=== PATIENT | female | born 1990 | race Hispanic/Latino ===

== ENCOUNTER 2022-08-31 08:54 | Emergency (ER) | payer BC ==
[2022-08-31 09:31] LABS: Absolute Lymphocytes (CBC) 2.4 K/uL (0.7-4.9); Hematocrit 40.7 % (36.0-45.0); Lymphocytes % 26.6 % (15.3-44.8); MCV 89.4 fL (80-100); MPV 7.4 fL (7.6-11.3); RBC Red Blood Cell Count 4.55 M/uL (3.86-4.86)
[2022-08-31 09:32] LABS: Specific Gravity < 1.005 (1.005-1.030)
[2022-08-31] MEDS ORDERED: FAMOTIDINE 20 MG/2 ML VIAL IV ONE (09:33)
[2022-08-31] MEDS ORDERED: PROMETHAZINE INJ 25 MG/ML AMP ONE (09:33)
[2022-08-31] MEDS ORDERED: NA CHLORIDE 0.9% 1,000 ML ONE (09:33)
[2022-08-31 09:38] LABS: Specific Gravity 1.005 (1.005-1.030); Urine Bacteria None Seen /HPF (<20); Urine Bilirubin NEGATIVE (Negative); Urine Blood Negative (Negative); Urine Clarity Turbid (Clear); Urine Color Colorless (Yellow); Urine Glucose NEGATIVE (Negative); Urine Protein NEGATIVE (Negative); Urine RBC None Seen /HPF (None Seen); Urine Urobilinogen Normal (Normal)
[2022-08-31 09:49] LABS: Albumin 3.6 g/dL (3.4-5.0); Bilirubin Total 0.4 mg/dL (0.2-1.0); Potassium 3.5 mEq/L (3.5-5.1); Protein, Total 7.2 g/dL (6.4-8.2)
--- NOTE | 2022-08-31 10:52 | RAD REPORT ---
EXAM DESCRIPTION: CT - Stone Protocol - 08/31/2022 10:32 am CLINICAL HISTORY: Abdominal pain. Right flank pain COMPARISON: None. TECHNIQUE: Computed axial tomography of the abdomen pelvis was obtained without oral or IV contrast. Lack of IV and oral contrast limits evaluation of solid organs, appendix, bowel, and vessels. Keane l reformatted images were obtained and reviewed. All CT scans are performed using dose optimization technique as appropriate and may include automated exposure control or mA/KV adjustment according to patient size. FINDINGS: A tiny right renal calculus. No hydronephrosis. Left renal calculus is not seen. No ureteral calculus. Bladder calculus is not present. The liver, spleen, pancreas and adrenals appear grossly normal There is no evidence of diverticulitis. An abnormal appendix is not visualized No adnexal mass Small umbilical hernia Spondylolysis L5. Slight anterior subluxation of L5 on S1 IMPRESSION: Tiny nonobstructing right renal calculus
--- NOTE | 2022-08-31 10:58 | ER ---
Nurse's Notes [facility] Name: Francesco Rosales Age: 32 yrs Sex: Female : 1990 Arrival Date: 08/31/2022 Time: 08:54 Bed 14 Private MD: Diagnosis: Other spondylosis, lumbosacral region;Unspecified renal colic Presentation: 08/31 08:59 Chief complaint: Patient states: pain on right side of torso X 2days , denies injury , iw + nausea, no v/d. Coronavirus screen: At this time, the client does not indicate any symptoms associated with coronavirus-19. Ebola Screen: Patient negative for fever greater than or equal to 101.5 degrees Fahrenheit, and additional compatible Ebola Virus Disease symptoms Patient denies exposure to infectious person. Patient denies travel to an Ebola-affected area in the 21 days before illness onset. No symptoms or risks identified at this time. Initial Sepsis Screen: Does the patient meet any 2 criteria? No. Patient's initial sepsis screen is negative. Does the patient have a suspected source of infection? No. Patient's initial sepsis screen is negative. Risk Assessment: Do you want to hurt yourself or someone else? Patient reports no desire to harm self or others. Onset of symptoms was August 29, 2022. 08:59 Method Of Arrival: Ambulatory iw 08:59 Acuity: DAVY 3 iw Triage Assessment: 09:20 General: Appears in no apparent distress. Behavior is calm, cooperative, appropriate bp for age. 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 Screenin:47 [facility] ED Fall Risk Assessment (Adult) History of falling in the last 3 months, bp including since admission No falls in past 3 months (0 pts). Abuse screen: Denies threats or abuse. Denies injuries from another. Nutritional screening: No deficits noted. Tuberculosis screening: No symptoms or risk factors identified. Assessment: 09:20 General: SEE TRIAGE NOTE. Pain: Complains of pain in right lower quadrant. GI: Bowel bp sounds present X 4 quads. Abd is soft. 10:46 Reassessment: PT RETURNED FROM CT. bp 11:37 Reassessment: DC HOME. bp Vital Signs: 08:59 BP 125 / 72; Pulse 70; Resp 16; Pulse Ox 99% ; iw 10:44 BP 111 / 65; Pulse 77; Resp 16; Pulse Ox 97% ; bp 11:37 BP 116 / 5; Pulse 53; Resp 16; Pulse Ox 99% ; bp ED Course: 08:55 Patient arrived in ED. ts1 08:57 Samantha Vail FNP-C is PHCP. snw 08:57 Sagar Diaz MD is Attending Physician. snw 09:00 Triage completed. iw 09:02 Arm band placed on. iw 09:10 Sanjay Wills, RN is Primary Nurse. bp 09:22 Inserted saline lock: 20 gauge in right forearm, using aseptic technique. Blood bp collected. 10:34 CT Stone Protocol In Process Unspecified. EDMS 10:47 Patient has correct armband on for positive identification. Bed in low position. Call bp light in reach. Side rails up X2. 11:38 No provider procedures requiring assistance completed. IV discontinued, intact, bp bleeding controlled, No redness/swelling at site. Pressure dressing applied. Administered Medications: 09:22 Drug: NS 0.9% IV 1000 ml Route: IV; Rate: 1 bolus; Site: right forearm; bp 11:19 Follow up: IV Status: Completed infusion; IV Intake: 1000ml bp 09:22 Drug: Famotidine IVP 20 mg Route: IVP; Site: right forearm; bp 11:20 Follow up: Response: No adverse reaction bp 09:22 Drug: Promethazine IVP 25 mg Route: IVP; Site: right forearm; bp 11:19 Follow up: Response: No adverse reaction bp 09:22 Drug: NS 0.9% IV 250 ml Route: IV; Rate: bolus; Site: right forearm; bp 11:20 Follow up: IV Status: Completed infusion; IV Intake: 250ml bp 11:19 Drug: Diazepam IVP 5 mg Route: IVP; Site: right forearm; bp 11:20 Follow up: Response: No adverse reaction bp Intake: 11:19 IV: 1000ml; Total: 1000ml. bp 11:20 IV: 250ml; Total: 1250ml. bp Outcome: 10:57 Discharge ordered by . snw 11:38 Discharged to home ambulatory, with family. bp 11:38 Condition: stable 11:38 Discharge instructions given to patient, Instructed on discharge instructions, follow up and referral plans. medication usage, Demonstrated understanding of instructions, follow-up care, medications, Prescriptions given X 2. 11:39 Patient left the ED. bp Signatures: Dispatcher [employer] EDMS Samantha Vail, DUCT LAYER-C DUCT LAYER-Csnw Tsering Cordova, RN RN iw Sanjay Wills RN RN bp Jazlyn Arias, PAS PAS ts1
--- NOTE | 2022-08-31 10:58 | EDPHYS ---
Physician Documentation [facility] Name: Francesco Rosales Age: 32 yrs Sex: Female : 1990 Arrival Date: 08/31/2022 Time: 08:54 Bed 14 Private MD: ED Physician Sagar Diaz HPI: 08/31 09:10 This 32 yrs old Female presents to ER via Ambulatory with complaints of snw Abdominal Pain. 09:10 The patient presents with abdominal pain right lower quadrant. Onset: The snw symptoms/episode began/occurred acutely, 2 day(s) ago, and became persistent. The symptoms radiate to right back. Associated signs and symptoms: Pertinent positives: nausea. The symptoms are described as achy. Severity of pain: At its worst the pain was moderate. The patient has not experienced similar symptoms in the past. The patient has not recently seen a physician. LMP 1 wk ago. 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 ROS: 09:09 Constitutional: Negative for fever, chills, and weight loss, Eyes: Negative for injury, snw pain, redness, and discharge, ENT: Negative for injury, pain, and discharge, Neck: Negative for injury, pain, and swelling, Cardiovascular: Negative for chest pain, palpitations, and edema, Respiratory: Negative for shortness of breath, cough, wheezing, and pleuritic chest pain, Back: Negative for injury and pain, : Negative for injury, bleeding, discharge, and swelling, MS/Extremity: Negative for injury and deformity, Skin: Negative for injury, rash, and discoloration, Neuro: Negative for headache, weakness, numbness, tingling, and seizure, Psych: Negative for depression, anxiety, suicide ideation, homicidal ideation, and hallucinations. 09:09 Abdomen/GI: Positive for abdominal pain, nausea, of the right lower quadrant. Exam: 09:07 Constitutional: This is a well developed, well nourished patient who is awake, alert, snw and in no acute distress. Head/Face: Normocephalic, atraumatic. Eyes: Pupils equal round and reactive to light, extra-ocular motions intact. Lids and lashes normal. Conjunctiva and sclera are non-icteric and not injected. Cornea within normal limits. Periorbital areas with no swelling, redness, or edema. ENT: Nares patent. No nasal discharge, no septal abnormalities noted. Tympanic membranes are normal and external auditory canals are clear. Oropharynx with no redness, swelling, or masses, exudates, or evidence of obstruction, uvula midline. Mucous membranes moist. Neck: Trachea midline, no thyromegaly or masses palpated, and no cervical lymphadenopathy. Supple, full range of motion without nuchal rigidity, or vertebral point tenderness. No Meningismus. Chest/axilla: Normal chest wall appearance and motion. Nontender with no deformity. No lesions are appreciated. Cardiovascular: Regular rate and rhythm with a normal S1 and S2. No gallops, murmurs, or rubs. Normal PMI, no JVD. No pulse deficits. Respiratory: Lungs have equal breath sounds bilaterally, clear to auscultation and percussion. No rales, rhonchi or wheezes noted. No increased work of breathing, no retractions or nasal flaring. Back: No spinal tenderness. No costovertebral tenderness. Full range of motion. Skin: Warm, dry with normal turgor. Normal color with no rashes, no lesions, and no evidence of cellulitis. MS/ Extremity: Pulses equal, no cyanosis. Neurovascular intact. Full, normal range of motion. Neuro: Awake and alert, GCS 15, oriented to person, place, time, and situation. Cranial nerves II-XII grossly intact. Motor strength 5/5 in all extremities. Sensory grossly intact. Cerebellar exam normal. Normal gait. Psych: Awake, alert, with orientation to person, place and time. Behavior, mood, and affect are within normal limits. 09:07 Abdomen/GI: Inspection: abdomen appears normal, Bowel sounds: hyperactive, in all quadrants, Palpation: mild abdominal tenderness, in the right lower quadrant. Vital Signs: 08:59 BP 125 / 72; Pulse 70; Resp 16; Pulse Ox 99% ; iw 10:44 BP 111 / 65; Pulse 77; Resp 16; Pulse Ox 97% ; bp 11:37 BP 116 / 5; Pulse 53; Resp 16; Pulse Ox 99% ; bp MDM: 09:07 Patient medically screened. snw 10:58 Differential diagnosis: appendicitis, Endometriosis, non-specific abd pain, ovarian snw cyst/back pain. Data reviewed: vital signs, nurses notes. I considered the following discharge prescriptions or medication management in the emergency department Medications were administered in the Emergency Department. See MAR. Counseling: I had a detailed discussion with the patient and/or guardian regarding: the historical points, exam findings, and any diagnostic results supporting the discharge/admit diagnosis, lab results, radiology results, the need for outpatient follow up, for definitive care, to return to the emergency department if symptoms worsen or persist or if there are any questions or concerns that arise at home. Response to treatment: the patient's symptoms have markedly improved after treatment. Special discussion: Based on the history and exam findings, there is no indication for further emergent testing or inpatient evaluation. I discussed with the patient/guardian the need to see the primary care provider for further evaluation of the symptoms. 08/31 08:57 Order name: Urine W/Microscopic (UAM); Complete Time: 09:46 snw 08/31 08:57 Order name: PREGU; Complete Time: 09:46 snw 08/31 09:09 Order name: CBC with Diff; Complete Time: 09:46 snw 08/31 09:09 Order name: CMP; Complete Time: 10:03 snw 08/31 09:09 Order name: Lipase; Complete Time: 10:03 snw 08/31 09:37 Order name: Test, Serum; Complete Time: 10:35 eb 08/31 09:47 Order name: CT Stone Protocol; Complete Time: 10:55 snw 08/31 09:09 Order name: Labs collected and sent; Complete Time: 09:32 snw Administered Medications: 09:22 Drug: NS 0.9% IV 1000 ml Route: IV; Rate: 1 bolus; Site: right forearm; bp 11:19 Follow up: IV Status: Completed infusion; IV Intake: 1000ml bp 09:22 Drug: Famotidine IVP 20 mg Route: IVP; Site: right forearm; bp 11:20 Follow up: Response: No adverse reaction bp 09:22 Drug: Promethazine IVP 25 mg Route: IVP; Site: right forearm; bp 11:19 Follow up: Response: No adverse reaction bp 09:22 Drug: NS 0.9% IV 250 ml Route: IV; Rate: bolus; Site: right forearm; bp 11:20 Follow up: IV Status: Completed infusion; IV Intake: 250ml bp 11:19 Drug: Diazepam IVP 5 mg Route: IVP; Site: right forearm; bp 11:20 Follow up: Response: No adverse reaction bp Disposition: 12:52 Co-signature as Attending Physician, Sagar Diaz MD I reviewed the patient's care rn provided by the Advanced Practice Provider and agree with the diagnosis and treatment plan. Disposition Summary: 08/31/22 10:57 Discharge Ordered Location: Home snw Condition: Stable snw Diagnosis - Other spondylosis, lumbosacral region snw - Unspecified renal colic snw Followup: snw - With: Emergency Department - When: As needed - Reason: Worsening of condition Followup: snw - With: Private Physician - When: 2 - 3 days - Reason: Recheck today's complaints, Continuance of care, Re-evaluation by your physician Discharge Instructions: - Discharge Summary Sheet snw - Renal Colic snw - Dietary Guidelines to Help Prevent Kidney Stones snw - Rehydration, Adult snw - Spondylolysis snw Forms: - Medication Reconciliation Form snw - Thank You Letter snw - Antibiotic Education snw - Prescription Opioid Use snw Prescriptions: - orphenadrine citrate 100 mg Oral Tablet Sustained Release - take 1 tablet by ORAL route 2 times per day As needed; 20 tablet; Refills: 0, snw Product Selection Permitted - promethazine 25 mg Oral Tablet - take 1 tablet by ORAL route every 6 hours As needed; 20 tablet; Refills: 0, snw Product Selection Permitted Signatures: Dispatcher [employer] Samantha Rubio FNP-C DATE NIGHT CAREGIVER-Csnw Tsering Cordova, RN Sagar Ibrahim MD MD rn Peltier, Brian, RN RN bp
[2022-08-31] MEDS ORDERED: DIAZEPAM 10 MG/2 ML INJ SYRINGE ONE (11:20)
[2022-08-31 12:01] VITALS: BP 111/65; O2SAT 97
== END 2022-08-31 11:39 | disposition home or self-care (01) ==
LOC: ER 08:54 → EDSEX 08:54 → ER 11:39
DX: N23 Unspecified renal colic (principal); M47.897 Other spondylosis, lumbosacral region; F17.210 Nicotine dependence, cigarettes, uncomplicated
CPT/HCPCS: 96365; 85025; 81001; 36415; 84703; 81025; 83690; 80053; 76377; 74176; 96375; 99284; 96366; J2550; J3360; J7030